=== PATIENT | female | born 1985 | race Caucasian/White ===

== ENCOUNTER → 2018-12-28 | Emergency (ER) | payer OTHER ==
[~2018-12-28] VITALS: Ht 154.9 cm; Wt 49.9 kg
[~2018-12-28] MED LIST: KETO10TA2 PO; SYNTHROID88 MCG; SYNTHROID88 MCG PO
== END | disposition home or self-care (01) ==
LOC: ER 00:35
DX: D25.9 Leiomyoma of uterus, unspecified (principal); R10.2 Pelvic and perineal pain

== ENCOUNTER 2019-03-04 09:18 | Emergency (ER) | payer OTHER ==
[~2019-03-04] VITALS: Ht 154.9 cm; Wt 49.9 kg
== END 2019-03-04 11:33 | disposition home or self-care (01) ==
LOC: ER 09:18
DX: M62.838 Other muscle spasm (principal)

== ENCOUNTER 2019-03-30 13:58 | Emergency (ER) | payer OTHER ==
[~2019-03-30] VITALS: Ht 154.9 cm; Wt 52.6 kg
== END 2019-03-31 00:21 | disposition home or self-care (01) ==
LOC: ER 13:58
DX: K52.9 Noninfective gastroenteritis and colitis, unspecified (principal)

== ENCOUNTER 2019-08-28 14:37 | Inpatient (IN) | payer OTHER ==
[~2019-08-28] VITALS: Ht 154.9 cm; Wt 54.4 kg
[2019-08-31] MEDS ORDERED: PERCOCET 5-3251 EACH PO (08:18)
[2019-08-31] MEDS ORDERED: SYNTHROID88 MCG PO (08:20)
== END 2019-08-31 11:02 | disposition home or self-care (01) | DRG 627 ==
LOC: O/R 08-30 04:40 → SURG 08-30 10:39 → SURH 08-30 11:15 → O/R 08-30 15:30 → SURH 08-30 15:30 → SURG 08-31 11:02
PROVIDERS: ADMIT Surgery
PROC: 0GTK0ZZ Resection of Thyroid Gland, Open Approach (ICD-10-PCS; principal; 2019-08-30 11:15)
DX: C73 Malignant neoplasm of thyroid gland (principal)

== ENCOUNTER 2024-05-12 08:36 | Emergency (ER) | payer OTHER ==
[~2024-05-12] VITALS: Ht 154.9 cm; Wt 55.8 kg
[~2024-05-12 08:36] MED LIST changes: +PERCOCET 5-3251 EACH PO
[2024-05-12] MEDS ORDERED: 0.9 % SODIUM CHLORIDE 1,000 ML IV ONE (09:15)
[2024-05-12] MEDS ORDERED: FAMOtidine 10 MG/ML (4ML VIAL) IV ONE (09:15)
[2024-05-12 10:03] LABS: HEMATOCRIT 42.1 % (36.0-45.00); HEMOGLOBIN 14.5 g/dL (12.0-15.00); MEAN CELL VOLUME 89.7 fL (80.00-100.00); MEAN CORPUSCULAR HEMOGLOBIN 30.9 pg (27.00-32.0); MEAN CORPUSCULAR HGB CONC 34.4 g/dl (32.0-36.0); PLATELET COUNT 356 K/uL (150-450); RED BLOOD COUNT 4.69 M/uL (4.00-6.00); RED CELL DISTRIBUTION WIDTH 13.3 % (11.5-14.5)
[2024-05-12 10:38] LABS: INR 1.03; PARTIAL THROMBOPLASTIN TIME 33.5 SECONDS (22.0-34.0); PROTHROMBIN TIME 11.2 SECONDS (9.0-11.5)
[2024-05-12 10:58] LABS: ALBUMIN 4.4 gm/dL (3.4-5.0); ALKALINE PHOSPHATASE 74 U/L (50-136); ALT/SGPT 14 U/L (12-78); ANION GAP 11 (10.0-20.0); AST/SGOT 14 U/L (15-37); BLOOD UREA NITROGEN 14 mg/dL (7-18); BUN CREA RATIO 18 (7.0-25.0); CALCIUM 9.8 mg/dL (8.5-10.1); CARBON DIOXIDE 25 mEq/L (21-32); CHLORIDE 105 mmol/L (98-107); CREATININE SERUM 0.76 mg/dL (0.55-1.02); GFR 84.29; GLOBULINA 4.4 G/DL (2.4-3.5); GLUCOSE FASTING 75 mg/dL (65-100); OSMOLALITY SERUM 275 MOSM/KG (275-295); POTASSIUM 3.44 mEq/L (3.5-5.1); SODIUM 138 mmol/L (136-145); TOTAL PROTEIN 8.8 gm/dL (6.4-8.2)
[2024-05-12 11:09] LABS: HCG QUANTITATIVE < 1 mUI/mL (1-3)
[2024-05-12 13:21] LABS: URINE APPEARANCE Clear; URINE BILIRRUBIN Negative (NEGATIVE); URINE BLOOD Negative; URINE COLOR Yellow; URINE GLUCOSE Negative (NEGATIVE); URINE LEUKOCYTE Negative; URINE NITRATE Negative; URINE PROTEIN Negative (NEGATIVE); URINE UROBILINOGEN 0.2 E.U./dl
[2024-05-12 13:23] LABS: URINE BACTERIA 270.9 uL (0.0-1933); URINE EPITHELIAL CELLS 2.7 uL (0.0-38.8); URINE RBC 2.7 uL (0.0-20.8); URINE WBC 1.9 uL (0.0-23.2)
[2024-05-12 13:28] LABS: URINE KETONE 40 (NEGATIVE)
[2024-05-12] MEDS ORDERED: KETO10TA2 PO (13:36)
[2024-05-12] MEDS ORDERED: PEPCID AC20 MG PO (13:36)
[2024-05-12] MEDS ORDERED: BACTRIM DS TAB1 EACH PO (13:36)
[2024-05-12] MEDS ORDERED: TAMS0.4C PO (13:36)
== END 2024-05-12 14:44 | disposition home or self-care (01) ==
LOC: ER 08:38
PROVIDERS: General Practice
DX: R10.84 Generalized abdominal pain (principal); N20.0 Calculus of kidney; N83.201 Unspecified ovarian cyst, right side; Z85.850 Personal history of malignant neoplasm of thyroid